=== PATIENT | male | born 1940 | race Asian ===

== ENCOUNTER 2022-09-20 20:38 | Emergency (ER) | payer MEDICARE, BC, SELFPAY ==
[2022-09-20] VITALS (9 sets, daily range): BP systolic 141–173; BP diastolic 62–77; PULSE 63–80; RESP 14–24; TEMP 36.6; O2SAT 94–100
--- NOTE | 2022-09-20 20:44 | ED_ITS ---
HPI - General Adult General Chief complaint: Trauma Stated complaint: Modified Trauma Time Seen by Provider: 09/20/22 20:44 Source: patient and EMS Mode of arrival: EMS Limitations: other (Confusion) History of Present Illness HPI narrative: Patient is a 81-year-old male who was brought in by EMS in a inflatable cervical collar and also on a inflatable backboard for evaluation of injuries that he sustained with an apparent fall. This was an unwitnessed fall. Was outside. The patient states he thinks that he tripped but he is not 100% sure. He does not remember having any prodromal symptoms. It was a bystander who contacted EMS. He is complaining of very severe upper back discomfort. Has bleeding from his nose not his face. Reports no belly hip or lower extremity discomfort. Related Data Allergies Allergy/AdvReac Type Severity Reaction Status Date / Time No Known Drug Allergies Allergy Verified 09/20/22 20:49 Review of Systems Review of Systems ROS Unobtainable: All systems reviewed & are unremarkable except as noted in HPI and below Patient History Social History Smoking Status: Current every day smoker Exam Initial Vital Signs Initial Vital Signs: Vital Signs Temperature 97.8 F 09/20/22 20:40 Pulse Rate 69 09/20/22 20:40 Respiratory Rate 14 09/20/22 20:40 Blood Pressure 171/77 H 09/20/22 20:40 Pulse Oximetry 99 09/20/22 20:40 Oxygen Delivery Method Room Air 09/20/22 20:40 Const General: No ill appearing HENMT Head: abrasion Face and sinus: abrasion, no crepitus, no fluctuance and no maxillary instability Mouth: oral mucosae normal and moist mucous membranes Teeth and gingiva: dentition normal Chest Chest: No crepitus and No tenderness Resp Effort & Inspection: normal respiratory effort Auscultation: clear to auscultation bilaterally Cardio Rate: regular rate Rhythm: regular rhythm GI Inspection: normal to inspection and non-distended Palpation: soft Back/Spine/Pelvis Cervical Spine: collar present Thoracic/Lumbar Spine: kyphosis, No paraspinal tenderness, thoracic spinal tenderness and No lumbar spinal tenderness Sacroiliac Joints: nontender Skin Other: Multiple abrasions over his face to include his for add in his cheeks and over the bridge of his nose. Also has an abrasion over his right shoulder and right elbow Neuro Other: Patient is alert to person at date but does not know where he is. Does not know what year it is. Extrem Other: Pelvis stable. No apparent discomfort with movement of bilateral knees and ankles. Bilateral wrists elbows and shoulders are unremarkable. Patient can move without any discomfort. Scores [facility] [place] coma scale eye opening: Spontaneous [place] coma scale verbal response: Confused [place] coma scale motor response: Obey commands [place] coma scale total score: 14 Course Orders Ordered: ED Orders 09/20/22 20:55 Complete Blood Count AUTO DIFF Stat Comprehensive Metabolic Panel Stat Ethanol (ETOH) Stat Lipase Stat PTT Partial Thromboplastin Ramez Stat Prothrombin Time INR Stat Discontinued Medications Hydrocodone Bitart/Acetaminophen (Hydrocodone/Acet 5/325 Tablet) 1 tab PO NOW ONE Stop: 09/20/22 22:34 Last Admin: 09/20/22 23:17 Dose: 1 tab Documented By: MARKIE Hydrocodone Bitart/Acetaminophen (Hydrocodone/Acet 5/325 Prepack) 1 bottle MISC SEEINSTR ONE Stop: 09/21/22 00:40 Last Admin: 09/21/22 01:08 Dose: 1 bottle Documented By: MARKIE Sodium Chloride (Normal Saline 0.9%) 1,000 mls @ 125 mls/hr IV CONT AMINTA Last Infusion: 09/21/22 00:13 Dose: 0 mls/hr Documented By: Admin: 09/20/22 21:42 Dose: 125 mls/hr Documented By: MARKIE Vital Signs Vital signs: Vital Signs - 8 hr 09/20/22 22:00 Pulse Rate 63 Respiratory Rate 20 Pulse Oximetry 100 Oxygen Delivery Method Room Air Medical Decision Making Lab Data Lab results reviewed: Yes I reviewed the patient's lab results. 09/20/22 20:55 09/20/22 20:55 Labs: Lab Results 09/20/22 09/20/22 09/20/22 Range/Units 20:55 20:55 20:55 WBC 28.5 H (4.5-11.0) X10^3/uL RBC 2.82 L (4.5-5.9) X10^6/uL Hgb 9.9 L (13.5-17.5) g/dL Hct 29.3 L (41-53) % MCV 103.7 H (80-100) fL MCH 35.1 H (26-34) PG MCHC 33.8 (30-36) % RDW 17.5 H (11.6-14.8) % Plt Count 431 H (150-400) X10^3/uL Neut % (Auto) 68.9 (50-75) % Lymph % (Auto) 10.7 L (25-40) % [place] % (Auto) 18.6 H (3-14) % Eos % (Auto) 0.8 L (2-4) % Baso % (Auto) 1.0 (0-2) % Neut # (Auto) 12435 H (8750-9048) /uL Lymph # (Auto) 3000 (2087-9061) /uL [place] # (Auto) 5300 H (0-900) /uL Eos # (Auto) 200 (0-450) /uL Baso # (Auto) 300 H (0-100) /uL PT 14.7 H (10.1-12.7) SECONDS INR 1.3 (0.9-1.3) APTT 33 (26-36) SECONDS Sodium 137 (137-145) mmol/L Potassium 4.1 (3.4-5.1) mmol/L Chloride 106 (98-107) mmol/L Carbon Dioxide 22 (22-32) mmol/L BUN 16 (9-20) mg/dL Creatinine 1.21 (0.66-1.25) mg/dL Estimated GFR > 60 (>60) mL/min BUN/Creatinine Ratio 13.2 (6-22) Glucose 106 (80-110) mg/dL Calcium 8.6 (8.4-10.2) mg/dL Total Bilirubin 0.4 (0.2-1.3) mg/dL AST 29 (17-59) IU/L ALT 29 (<50) IU/L Alkaline Phosphatase 67 (38-126) U/L Total Protein 6.2 L (6.3-8.2) g/dL Albumin 3.9 (3.5-5.0) g/dL Globulin 2.3 (1.7-4.1) g/dL Albumin/Globulin Ratio 1.7 (1.0-2.8) Lipase (23-300) U/L Ethyl Alcohol < 10 ( - 10) mg/dL 09/20/22 Range/Units 20:55 WBC (4.5-11.0) X10^3/uL RBC (4.5-5.9) X10^6/uL Hgb (13.5-17.5) g/dL Hct (41-53) % MCV (80-100) fL MCH (26-34) PG MCHC (30-36) % RDW (11.6-14.8) % Plt Count (150-400) X10^3/uL Neut % (Auto) (50-75) % Lymph % (Auto) (25-40) % [place] % (Auto) (3-14) % Eos % (Auto) (2-4) % Baso % (Auto) (0-2) % Neut # (Auto) (9012-8396) /uL Lymph # (Auto) (0668-7736) /uL [place] # (Auto) (0-900) /uL Eos # (Auto) (0-450) /uL Baso # (Auto) (0-100) /uL PT (10.1-12.7) SECONDS INR (0.9-1.3) APTT (26-36) SECONDS Sodium (137-145) mmol/L Potassium (3.4-5.1) mmol/L Chloride (98-107) mmol/L Carbon Dioxide (22-32) mmol/L BUN (9-20) mg/dL Creatinine (0.66-1.25) mg/dL Estimated GFR (>60) mL/min BUN/Creatinine Ratio (6-22) Glucose (80-110) mg/dL Calcium (8.4-10.2) mg/dL Total Bilirubin (0.2-1.3) mg/dL AST (17-59) IU/L ALT (<50) IU/L Alkaline Phosphatase (38-126) U/L Total Protein (6.3-8.2) g/dL Albumin (3.5-5.0) g/dL Globulin (1.7-4.1) g/dL Albumin/Globulin Ratio (1.0-2.8) Lipase 257 (23-300) U/L Ethyl Alcohol ( - 10) mg/dL Urine Dip Bedside Urine Glucose Negative Bedside Urine Bilirubin - Negative Bedside Urine Ketone - Negative Urine Specific [place] 1.010 Bedside Urine Occult Blood - Negative Bedside Urine pH 7.0 Bedside Urine Protein +/- 15 Bedside Urine Urobilinogen - Negative Bedside Urine Nitrite - Negative Bedside Urine Leukocytes - Negative Esterase Point of care testing: Urine Dip Bedside Urine Glucose Negative Bedside Urine Bilirubin - Negative Bedside Urine Ketone - Negative Urine Specific [place] 1.010 Bedside Urine Occult Blood - Negative Bedside Urine pH 7.0 Bedside Urine Protein +/- 15 Bedside Urine Urobilinogen - Negative Bedside Urine Nitrite - Negative Bedside Urine Leukocytes - Negative Esterase Imaging Data CT chest: Radiologist's Impression: PROCEDURE:? CT CHEST WO CON ? INDICATIONS:? fall with T spine pain ? TECHNIQUE: Noncontrast 5 mm thick sections acquired from the pulmonary apices to the posterior costophrenic angles.? 1 mm lung window, 5 mm thick coronal and sagittal and 7 mm axial MIP reformats were then acquired.? For radiation dose reduction, the following was used:? automated exposure control, adjustment of mA and/or kV according to patient size.? ? COMPARISON:? None. ? FINDINGS:? Image quality:? Excellent.? ? Lungs and pleura:? 2.0 by 1.6 cm subpleural nodule is seen at the medial right lung apex (74/3).? A 0.4 cm solid nodule at the posteromedial left upper lobe (89/3).? No acute air space opacities.? No pleural effusions or pneumothorax.? Mild bilateral bronchiectasis and bronchial wall thickening. ? Mediastinum:? Heart size is normal.? No pericardial effusion.? Moderate coronary artery calcifications.? No mediastinal adenopathy by size criteria.? Thoracic aorta and central pulmonary arteries are normal in size.? Esophagus is normal in caliber.? No hiatal hernia.? ? Bones and chest wall:? No suspicious bony lesions.? No vertebral body compressio n fractures.? Multilevel spondylosis.? No axillary or supraclavicular adenopathy by size criteria.? Subcentimeter calcified right thyroid nodule does not require dedicated imaging follow-up. ? Abdomen:? Spleen is markedly enlarged, measuring 16.9 cm and anterior-posterior dimension. ? IMPRESSION:? 1. No acute thoracic spine fracture. 2. Right apical 2.0 cm subpleural nodule.? Consider follow-up CT chest in 3 months versus PET-CT or percutaneous biopsy for further evaluation.? 3. Marked splenomegaly CT - cervical spine: Radiologist's Impression: PROCEDURE:? CT CERVICAL SPINE WO CON ? INDICATIONS:? fall with neck pain ? TECHNIQUE:? Noncontrast 3 mm thick sections acquired from the skull base to the T4 level.? Sagittal and coronal reformats were then constructed.? For radiation dose reduction, the following was used:? automated exposure control, adjustment of mA and/or kV according to patient size.? ? COMPARISON:? None. ? FINDINGS:? Image quality:? Excellent.? ? Bones:? No acute fractures or dislocations.? Visualized superior ribs are intact.? Multilevel disc space narrowing degenerative endplate changes.? Multilevel un covertebral joint and facet hypertrophy.? Moderate chronic narrowing of the bony spinal canal is seen at the C5-6 disc space level. ? Soft tissues:? Prevertebral soft tissues are normal in thickness.? No paravertebral hematomas.? No apical pneumothoraces.? A subpleural nodule is seen at the medial right lung apex.? A densely calcified subcentimeter right thyroid nodule requires no dedicated imaging follow-up. ? IMPRESSION:? 1. No acute cervical spine fracture or subluxation. 2. Multilevel spondylosis including chronic narrowing of the bony spinal canal.? MRI of the cervical spine could be performed for further evaluation if indicated clinically.? CT face: Radiologist's Impression: PROCEDURE:? CT FACIAL BONES WO CON ? INDICATIONS:? fall with face injuries ? TECHNIQUE:? Noncontrast 2.5 mm thick axial images acquired from the mandible through the frontal sinuses, with coronal and sagittal reformatting.? For radiation dose reduction, the following was used:? automated exposure control, adjustment of mA and/or kV according to patient size.? ? COMPARISON:? None. ? FINDINGS:? Image quality:? Excellent.? ? Bones and teeth:? Minimally displaced comminuted bilateral nasal bone fractures.? Minimally displaced fracture of the anterosuperior nasal septum (images 80-81 of series 2). Bilateral temporomandibular joint osteoarthrosis, right greater than left.? Orbital dickens are intact.? Sinus dickens show no fracture or deformity.? Visualized portions of the mandible demonstrate no fractures or subluxation.? Zygomatic arches are intact.? Pterygoid plates are intact.? Visualized portions of the skull base and auditory canals are intact.? ? Sinuses:? Paranasal sinuses are aerated, without fluid levels, mucosal thickening, or mucoceles.? Mastoid air cells are aerated.? ? Soft tissues:? Soft tissue edema is seen overlying the nose.? No enlarged lymph nodes.? No soft tissue lacerations or debris.? ? Vascular:? Visualized vascular structures appear normal in the absence of contrast.? Bony vascular foramina and canals are intact.? ? IMPRESSION:? 1. Minimally displaced comminuted bilateral nasal bone fractures. 2. Minimally displaced fracture of the anterosuperior nasal septum.? CT scan - head: Radiologist's Impression: PROCEDURE:? CT HEAD/BRAIN WO CON ? INDICATIONS:? fall and confusion ? TECHNIQUE:? Noncontrast 4.5 mm thick angled axial sections acquired from the foramen magnum to the vertex, with coronal and sagittal reformats.? For radiation dose reduction, the following was used:? automated exposure control, adjustment of mA and/or kV according to patient size.? ? COMPARISON:? None. ? FINDINGS:? Image quality:? Excellent.? ? CSF spaces:? Basal cisterns are patent.? No extra-axial fluid collections.? The ventricles are symmetric in size and shape.? ? Brain:? No acute intracranial hemorrhage or mass effect.? Moderately-sized area of chronic encephalomalacia is seen left frontoparietal region.? There is cerebral volume loss for age, with resultant ventricular and sulcal prominence.? There are periventricular and deep white matter chronic small vessel ischemic changes.? There is intracranial internal carotid artery atherosclerosis.? ? Skull and face:? Minimally displaced bilateral nasal bone fractures.? The calvarium is intact.? Facial edema and frontal scalp edema are noted. ? Sinuses:? Visualized sinuses and mastoids are clear.? ? IMPRESSION:? 1. No acute intracranial hemorrhage or mass effect. 2. Minimally displaced bilateral nasal bone fractures.? Frontal scalp edema.? No calvarial fracture. 3. Remote prior left frontoparietal infarct MDM Narrative Medical decision making narrative: Able to get a hold of the patient's daughter states that he is at his baseline mental status. CT scans do show a nasal bone fracture but no other associated fractures. Patient was given pain medication. Was able to stand and ambulate at bedside. Is also able to tolerate oral intake. Discussed the incidental pulmonary nodule. Family knows about this. We will hold on further workup for now. Family was given care instructions with regard to the abrasions. They were given return precautions. They expressed understanding and agreement. Discharge Plan Departure Patient Disposition: Home Clinical Impression: Incidental pulmonary nodule, Fracture of nasal bone, Abrasion of face Instructions: DI for Nose Fracture, DI for Abrasion Activity Restrictions/Additional Instructions: You can shower like normal. You can put some topical antibiotic ointment over the abrasions on your face. I would not be surprised if you develop some black his over the next day or so. You can eat like normal sleep like normal. Return to the emergency department for new or worsening symptoms. Referrals: Shannon Rubio MD [Primary Care Provider] - Stand Alone Forms: Patient Portal/API
--- NOTE | 2022-09-20 20:45 | DI.CT.S_ITS ---
PROCEDURE: CT CHEST WO CON INDICATIONS: fall with T spine pain TECHNIQUE: Noncontrast 5 mm thick sections acquired from the pulmonary apices to the posterior costophrenic angles. 1 mm lung window, 5 mm thick coronal and sagittal and 7 mm axial MIP reformats were then acquired. For radiation dose reduction, the following was used: automated exposure control, adjustment of mA and/or kV according to patient size. COMPARISON: None. FINDINGS: Image quality: Excellent. Lungs and pleura: 2.0 by 1.6 cm subpleural nodule is seen at the medial right lung apex (74/3). A 0.4 cm solid nodule at the posteromedial left upper lobe (89/3). No acute air space opacities. No pleural effusions or pneumothorax. Mild bilateral bronchiectasis and bronchial wall thickening. Mediastinum: Heart size is normal. No pericardial effusion. Moderate coronary artery calcifications. No mediastinal adenopathy by size criteria. Thoracic aorta and central pulmonary arteries are normal in size. Esophagus is normal in caliber. No hiatal hernia. Bones and chest wall: No suspicious bony lesions. No vertebral body compression fractures. Multilevel spondylosis. No axillary or supraclavicular adenopathy by size criteria. Subcentimeter calcified right thyroid nodule does not require dedicated imaging follow-up. Abdomen: Spleen is markedly enlarged, measuring 16.9 cm and anterior-posterior dimension. IMPRESSION: 1. No acute thoracic spine fracture. 2. Right apical 2.0 cm subpleural nodule. Consider follow-up CT chest in 3 months versus PET-CT or percutaneous biopsy for further evaluation. 3. Marked splenomegaly. Approved by: Andrés Cardona M.D. on 09/20/2022 at 21:54
--- NOTE | 2022-09-20 20:46 | DI.CT.S_ITS ---
PROCEDURE: CT HEAD/BRAIN WO CON INDICATIONS: fall and confusion TECHNIQUE: Noncontrast 4.5 mm thick angled axial sections acquired from the foramen magnum to the vertex, with coronal and sagittal reformats. For radiation dose reduction, the following was used: automated exposure control, adjustment of mA and/or kV according to patient size. COMPARISON: None. FINDINGS: Image quality: Excellent. CSF spaces: Basal cisterns are patent. No extra-axial fluid collections. The ventricles are symmetric in size and shape. Brain: No acute intracranial hemorrhage or mass effect. Moderately-sized area of chronic encephalomalacia is seen left frontoparietal region. There is cerebral volume loss for age, with resultant ventricular and sulcal prominence. There are periventricular and deep white matter chronic small vessel ischemic changes. There is intracranial internal carotid artery atherosclerosis. Skull and face: Minimally displaced bilateral nasal bone fractures. The calvarium is intact. Facial edema and frontal scalp edema are noted. Sinuses: Visualized sinuses and mastoids are clear. IMPRESSION: 1. No acute intracranial hemorrhage or mass effect. 2. Minimally displaced bilateral nasal bone fractures. Frontal scalp edema. No calvarial fracture. 3. Remote prior left frontoparietal infarct. Approved by: Andrés Cardona M.D. on 09/20/2022 at 21:40
--- NOTE | 2022-09-20 20:46 | DI.CT.S_ITS ---
PROCEDURE: CT FACIAL BONES WO CON INDICATIONS: fall with face injuries TECHNIQUE: Noncontrast 2.5 mm thick axial images acquired from the mandible through the frontal sinuses, with coronal and sagittal reformatting. For radiation dose reduction, the following was used: automated exposure control, adjustment of mA and/or kV according to patient size. COMPARISON: None. FINDINGS: Image quality: Excellent. Bones and teeth: Minimally displaced comminuted bilateral nasal bone fractures. Minimally displaced fracture of the anterosuperior nasal septum (images 80-81 of series 2). Bilateral temporomandibular joint osteoarthrosis, right greater than left. Orbital dickens are intact. Sinus dickens show no fracture or deformity. Visualized portions of the mandible demonstrate no fractures or subluxation. Zygomatic arches are intact. Pterygoid plates are intact. Visualized portions of the skull base and auditory canals are intact. Sinuses: Paranasal sinuses are aerated, without fluid levels, mucosal thickening, or mucoceles. Mastoid air cells are aerated. Soft tissues: Soft tissue edema is seen overlying the nose. No enlarged lymph nodes. No soft tissue lacerations or debris. Vascular: Visualized vascular structures appear normal in the absence of contrast. Bony vascular foramina and canals are intact. IMPRESSION: 1. Minimally displaced comminuted bilateral nasal bone fractures. 2. Minimally displaced fracture of the anterosuperior nasal septum. Approved by: Andrés Cardona M.D. on 09/20/2022 at 22:10
--- NOTE | 2022-09-20 20:46 | DI.CT.S_ITS ---
PROCEDURE: CT CERVICAL SPINE WO CON INDICATIONS: fall with neck pain TECHNIQUE: Noncontrast 3 mm thick sections acquired from the skull base to the T4 level. Sagittal and coronal reformats were then constructed. For radiation dose reduction, the following was used: automated exposure control, adjustment of mA and/or kV according to patient size. COMPARISON: None. FINDINGS: Image quality: Excellent. Bones: No acute fractures or dislocations. Visualized superior ribs are intact. Multilevel disc space narrowing degenerative endplate changes. Multilevel uncovertebral joint and facet hypertrophy. Moderate chronic narrowing of the bony spinal canal is seen at the C5-6 disc space level. Soft tissues: Prevertebral soft tissues are normal in thickness. No paravertebral hematomas. No apical pneumothoraces. A subpleural nodule is seen at the medial right lung apex. A densely calcified subcentimeter right thyroid nodule requires no dedicated imaging follow-up. IMPRESSION: 1. No acute cervical spine fracture or subluxation. 2. Multilevel spondylosis including chronic narrowing of the bony spinal canal. MRI of the cervical spine could be performed for further evaluation if indicated clinically. Approved by: Andrés Cardona M.D. on 09/20/2022 at 21:46
[2022-09-20 21:14] LABS: INR 1.3 (0.9-1.3); Prothrombin Time 14.7 SECONDS (10.1-12.7)
[2022-09-20 21:15] LABS: Add Manual Diff / Slide Review NO; Basophils Absolute Auto 300 /uL (0-100); Eosinophils Absolute Auto 200 /uL (0-450); Eosinophils Percent Auto 0.8 % (2-4); Hematocrit 29.3 % (41-53); Hemoglobin 9.9 g/dL (13.5-17.5); Lymphocytes Absolute Auto 3000 /uL (1100-4500); Lymphocytes Percent Auto 10.7 % (25-40); Mean Corpuscular HGB Conc 33.8 % (30-36); Mean Corpuscular Hemoglobin 35.1 PG (26-34); Mean Corpuscular Volume 103.7 fL (80-100); Monocytes Absolute Auto 5300 /uL (0-900); Monocytes Percent Auto 18.6 % (3-14); Neutrophils Absolute Auto 19600 /uL (1500-7000); Neutrophils Percent Auto 68.9 % (50-75); Platelet Count 431 X10^3/uL (150-400); Red Blood Cell Count 2.82 X10^6/uL (4.5-5.9); Red Cell Distribution Width 17.5 % (11.6-14.8); White Blood Cell Count 28.5 X10^3/uL (4.5-11.0)
[2022-09-20 21:17] LABS: PTT Partial Thromboplastin Tim 33 SECONDS (26-36)
[2022-09-20 21:21] LABS: Lipase 257 U/L (23-300)
[2022-09-20 21:23] LABS: Alanine Aminotransferase 29 IU/L (<50); Albumin 3.9 g/dL (3.5-5.0); Albumin Globulin Ratio 1.7 (1.0-2.8); Alkaline Phosphatase 67 U/L (38-126); Aspartate Aminotransferase 29 IU/L (17-59); BUN Creatinine Ratio 13.2 (6-22); Bilirubin Total 0.4 mg/dL (0.2-1.3); Blood Urea Nitrogen 16 mg/dL (9-20); Calcium 8.6 mg/dL (8.4-10.2); Carbon Dioxide 22 mmol/L (22-32); Chloride 106 mmol/L (98-107); Estimated Glomerular Filt Rate > 60 mL/min (>60); Ethanol (ETOH) < 10 mg/dL; Globulin 2.3 g/dL (1.7-4.1); Glucose 106 mg/dL (80-110); HEMOLYSIS 24 (0-50); Potassium 4.1 mmol/L (3.4-5.1); Sodium 137 mmol/L (137-145); Total Protein 6.2 g/dL (6.3-8.2)
[2022-09-20] MEDS: SODIUM CHLORIDE 0.9% 1,000 ML 125 ML IV (21:42)
[2022-09-20] MEDS: HYDROCODONE/ACET 5/325 TABLET 1 TAB PO (23:17)
[2022-09-21] MEDS: HYDROCODONE/ACET 5/325 PREPACK 1 BOTTLE MISC (01:08)
== END 2022-09-21 00:50 | disposition home or self-care (01) ==
PROVIDERS: Emergency Provider Emergency Medicine; PCP Internal Medicine
DX: S02.2XXA Fracture of nasal bones, initial encounter for closed fracture (principal); S00.81XA Abrasion of other part of head, initial encounter; M54.2 Cervicalgia; R07.9 Chest pain, unspecified; R41.0 Disorientation, unspecified; R91.1 Solitary pulmonary nodule; W19.XXXA Unspecified fall, initial encounter
CPT/HCPCS: 70450; 70486; 71250; 72125; 80053; 80320; 81003; 83690; 85025; 85610; 85730; 93005; 93010; 96360; 96361; 99284

== ENCOUNTER 2022-09-22 10:30 | Emergency (ER) | payer MEDICARE, BC, SELFPAY ==
[2022-09-22] VITALS (29 sets, daily range): BP systolic 112–162; BP diastolic 56–71; PULSE 45–83; RESP 11–27; TEMP 36.9; O2SAT 97–100; BMI 22.8
--- NOTE | 2022-09-22 11:13 | DI.RAD.S_ITS ---
PROCEDURE: XR SHOULDER RT MIN 2V INDICATIONS: pain TECHNIQUE: 3 views of the shoulder were acquired. COMPARISON: None. FINDINGS: Overlying EKG wires. Bones: No fractures or dislocations. No suspicious bony lesions. Visualized ribs appear intact. Moderate acromioclavicular and mild glenohumeral joint degenerative changes. Soft tissues: No suspicious soft tissue calcifications. IMPRESSION: No acute osseous abnormality. Moderate acromioclavicular and mild glenohumeral joint degenerative changes. Dictated by: Chad Brooks D.O. on 09/22/2022 at 10:45 Approved by: Chad Brooks D.O. on 09/22/2022 at 10:46
--- NOTE | 2022-09-22 11:38 | ED.FALL ---
HPI - Fall General Chief Complaint: Fall Stated Complaint: Fall, R shoulder pain Time Seen by Provider: 09/22/22 11:05 History of Present Illness HPI Narrative: Patient 81-year-old male history of recent fall on 09/20/2022. He was brought in by EMS seen evaluated here. Had multiple CTs and blood work. Who presented as a probable trip and fall but was not sure today he says that he passed out. He is significant contusion all over his face. CT facial bones was negative. Today really complaining of bilateral shoulder pain pain every time he moves. He lives alone. Pain is definitely not well controlled. Also blood work from visit showed leukocytosis of 28 without obvious sign of infection. Today he really seems to be complaining of pain in ribs and arms every time he moves. Related Data Allergies Allergy/AdvReac Type Severity Reaction Status Date / Time No Known Drug Allergies Allergy Verified 09/20/22 20:49 Review of Systems Review of Systems ROS Unobtainable: All systems reviewed & are unremarkable except as noted in HPI and below Patient History Social History Smoking Status: Current every day smoker Smoking Status: Current every day smoker alcohol intake frequency: 0-2 drinks per day Substance Use Type: does not use Exam Initial Vital Signs Initial Vital Signs: Vital Signs Temperature 98.4 F 09/22/22 10:37 Pulse Rate 55 L 09/22/22 10:37 Respiratory Rate 16 09/22/22 10:37 Blood Pressure 161/63 H 09/22/22 10:37 Pulse Oximetry 97 09/22/22 10:37 Oxygen Delivery Method Room Air 09/22/22 10:37 GENERAL: Alert 81-year-old male contusion over face thin HEENT: Head atraumatic,EOMI, pupils reactive, face symmetric, moist mucous membranes CARDIOVASCULAR: Regular rate and rhythm without murmurs, rubs or gallops. RESPIRATORY: Breath sounds equal bilaterally, no wheezes rales or rhonchi. ABDOMEN: Soft, nontender. Normoactive bowel sounds all 4 quadrants. No guarding or rebound mild spleen unlikely but no significant left upper quadrant pain. EXTREMITIES: Normal range of motion, no clubbing or edema. Neurovascularly intact No gross bony deformity in any limb however he has significant pain with any type of movement or palpation shoulders and arms pulses intact bilaterally no contusions or erythema. NEUROLOGICAL: Alert and oriented x4. SKIN: Abrasions noted all over face but no lacerations Course Orders Ordered: Discontinued Medications Hydromorphone HCl (Hydromorphone 0.5 Mg Inj) 0.5 mg IV NOW ONE Stop: 09/22/22 11:45 Last Admin: 09/22/22 11:51 Dose: 0.5 mg Documented By: TEZ Sodium Chloride (Normal Saline 0.9%) 1,000 mls @ 1,000 mls/hr IV BOLUS ONE Stop: 09/22/22 13:24 Last Infusion: 09/22/22 13:44 Dose: 0 mls/hr Documented By: Admin: 09/22/22 12:33 Dose: 1,000 mls/hr Documented By: TEZ Morphine Sulfate (Morphine 4 Mg/Ml Inj) 4 mg IV NOW ONE Stop: 09/22/22 13:39 Last Admin: 09/22/22 13:41 Dose: 4 mg Documented By: TEZ Morphine Sulfate (Morphine 4 Mg/Ml Inj) 4 mg IV NOW ONE Stop: 09/22/22 15:41 Last Admin: 09/22/22 15:46 Dose: 4 mg Documented By: TEZ Morphine Sulfate (Morphine 4 Mg/Ml Inj) 4 mg IV NOW ONE Stop: 09/22/22 18:07 Last Admin: 09/22/22 18:18 Dose: 4 mg Documented By: TEZ Morphine Sulfate (Morphine 4 Mg/Ml Inj) 4 mg IV Q3H PRN PRN Reason: Pain, Severe (7-10) Last Admin: 09/22/22 21:09 Dose: 4 mg Documented By: TEZ Vital Signs Vital signs: Vital Signs - 8 hr 09/22/22 11:53 09/22/22 12:00 09/22/22 12:01 Pulse Rate 53 L 49 L Respiratory Rate 22 12 Blood Pressure 140/61 Pulse Oximetry 100 100 09/22/22 12:01 09/22/22 12:30 09/22/22 12:31 Pulse Rate 48 L 48 L Respiratory Rate 12 19 Blood Pressure 129/58 L Pulse Oximetry 100 100 09/22/22 12:31 09/22/22 13:00 09/22/22 13:01 Pulse Rate 47 L 51 L Respiratory Rate 11 L 15 Blood Pressure 162/71 H Pulse Oximetry 100 100 09/22/22 13:01 09/22/22 13:30 09/22/22 13:31 Pulse Rate 51 L 50 L Respiratory Rate 14 17 Blood Pressure 139/63 Pulse Oximetry 100 100 09/22/22 13:31 09/22/22 14:00 09/22/22 14:00 Pulse Rate 49 L 51 L Respiratory Rate 20 23 Blood Pressure 121/58 L Pulse Oximetry 100 100 09/22/22 14:30 09/22/22 15:00 09/22/22 15:30 Pulse Rate 50 L 83 64 Respiratory Rate 20 22 26 H Blood Pressure Pulse Oximetry 99 100 100 09/22/22 15:34 09/22/22 15:34 09/22/22 15:49 Pulse Rate 60 51 L Respiratory Rate 27 H 14 Blood Pressure 147/65 H Pulse Oximetry 100 100 09/22/22 15:49 09/22/22 16:00 09/22/22 16:00 Pulse Rate 50 L Respiratory Rate 11 L Blood Pressure 143/63 H 118/57 L Pulse Oximetry 97 09/22/22 16:30 09/22/22 16:30 09/22/22 17:00 Pulse Rate 49 L 49 L Respiratory Rate 12 12 Blood Pressure 115/57 L Pulse Oximetry 98 99 09/22/22 17:01 09/22/22 17:01 09/22/22 17:30 Pulse Rate 46 L 47 L Respiratory Rate 11 L 13 Blood Pressure 132/58 L Pulse Oximetry 100 98 09/22/22 17:31 09/22/22 17:31 09/22/22 17:56 Pulse Rate 47 L Respiratory Rate 11 L Blood Pressure 115/56 L 128/62 Pulse Oximetry 100 09/22/22 17:56 09/22/22 18:00 09/22/22 18:00 Pulse Rate 50 L 47 L Respiratory Rate 20 13 Blood Pressure 112/56 L Pulse Oximetry MDM - Fall Lab Data 09/22/22 11:49 09/22/22 11:49 Labs: Lab Results 09/22/22 09/22/22 09/22/22 Range/Units 11:49 11:49 11:49 WBC 21.4 H (4.5-11.0) X10^3/uL RBC 2.72 L (4.5-5.9) X10^6/uL Hgb 9.7 L (13.5-17.5) g/dL Hct 28.2 L (41-53) % MCV 103.6 H (80-100) fL MCH 35.5 H (26-34) PG MCHC 34.3 (30-36) % RDW 17.4 H (11.6-14.8) % Plt Count 398 (150-400) X10^3/uL Neut % (Auto) Not Reportable Lymph % (Auto) Not Reportable [place] % (Auto) Not Reportable Eos % (Auto) Not Reportable Baso % (Auto) Not Reportable Lymph # (Auto) Not Reportable [place] # (Auto) Not Reportable Baso # (Auto) Not Reportable Total Counted 100 Seg Neutrophils % 72.0 H (38-70) % Lymphocytes % (Manual) 9.0 L (25-45) % Monocytes % (Manual) 14.0 H (2-11) % Eosinophils % (Manual) 3.0 (2-4) % Basophils % (Manual) 1.0 (0-1) % Metamyelocytes % 1.0 H (-0) % Neutrophils # (Manual) 19117 H (3370-5660) /uL RBC Morphology See below Anisocytosis 1+ H Macrocytosis 1+ H Sodium 137 (137-145) mmol/L Potassium 4.0 (3.4-5.1) mmol/L Chloride 108 H (98-107) mmol/L Carbon Dioxide 24 (22-32) mmol/L BUN 17 (9-20) mg/dL Creatinine 1.29 H (0.66-1.25) mg/dL Estimated GFR 56 L (>60) mL/min BUN/Creatinine Ratio 13.2 (6-22) Glucose 98 (80-110) mg/dL Lactate 1.4 (0.7-2.1) mmol/L Calcium 8.4 (8.4-10.2) mg/dL Total Bilirubin 0.4 (0.2-1.3) mg/dL AST 20 (17-59) IU/L ALT 22 (<50) IU/L Alkaline Phosphatase 52 (38-126) U/L Total Creatine Kinase (55-170) U/L CK-MB (CK-2) CK-MB (CK-2) Rel Index Troponin I (0.01-0.034) ng/mL Total Protein 5.7 L (6.3-8.2) g/dL Albumin 3.5 (3.5-5.0) g/dL Globulin 2.2 (1.7-4.1) g/dL Albumin/Globulin Ratio 1.6 (1.0-2.8) Procalcitonin 0.12 (<0.5) ng/mL Urine Color Urine Appearance Urine pH (4.5-8.0) Ur Specific [place] (1.000-1.035) Urine Protein (Negative) Urine Glucose (UA) (Negative) g/dL Urine Ketones (NEGATIVE) Urine Occult Blood (Negative) Urine Nitrate (Negative) Urine Bilirubin (NEGATIVE) Urine Urobilinogen (0.2) E.U./dL Ur Leukocyte Esterase (NEGATIVE) Urine RBC (0-5/HPF) Urine WBC (0-5/HPF) Ur Squamous Epith Cells (0-5/HPF) Urine Bacteria (None) Ur Culture Indicated? Chlamy pneumoniae PCR (Not Detect) Adenovirus (PCR) (Not Detect) B. pertussis DNA (PCR) (Not Detecte) B.parapertussis DNA PCR (Not Detecte) Coronavirus OC43 (PCR) (Not Detect) Coronavirus HKU1 (PCR) (Not Detect) Coronavirus 229E (PCR) (Not Detect) SARS-CoV-2 (PCR) (Not Detecte) Coronavirus NL63 (PCR) (Not Detect) Human Metapneumovir PCR (Not Detect) Influenza Type A (PCR) (Not Detect) Influenza Type B (PCR) (Not Detect) M. pneumoniae (PCR) (Not Detect) Parainfluenza 1 (PCR) (Not Detect) Parainfluenza 2 (PCR) (Not Detect) Parainfluenza 3 (PCR) (Not Detect) Parainfluenza 4 (PCR) (Not Detect) RSV (PCR) (Not Detect) Entero/Rhino (PCR) (Not Detect) 09/22/22 09/22/22 09/22/22 Range/Units 11:49 12:04 14:17 WBC (4.5-11.0) X10^3/uL RBC (4.5-5.9) X10^6/uL Hgb (13.5-17.5) g/dL Hct (41-53) % MCV (80-100) fL MCH (26-34) PG MCHC (30-36) % RDW (11.6-14.8) % Plt Count (150-400) X10^3/uL Neut % (Auto) Lymph % (Auto) [place] % (Auto) Eos % (Auto) Baso % (Auto) Lymph # (Auto) [place] # (Auto) Baso # (Auto) Total Counted Seg Neutrophils % (38-70) % Lymphocytes % (Manual) (25-45) % Monocytes % (Manual) (2-11) % Eosinophils % (Manual) (2-4) % Basophils % (Manual) (0-1) % Metamyelocytes % (-0) % Neutrophils # (Manual) (0994-1820) /uL RBC Morphology Anisocytosis Macrocytosis Sodium (137-145) mmol/L Potassium (3.4-5.1) mmol/L Chloride (98-107) mmol/L Carbon Dioxide (22-32) mmol/L BUN (9-20) mg/dL Creatinine (0.66-1.25) mg/dL Estimated GFR (>60) mL/min BUN/Creatinine Ratio (6-22) Glucose (80-110) mg/dL Lactate (0.7-2.1) mmol/L Calcium (8.4-10.2) mg/dL Total Bilirubin (0.2-1.3) mg/dL AST (17-59) IU/L ALT (<50) IU/L Alkaline Phosphatase (38-126) U/L Total Creatine Kinase 27 L (55-170) U/L CK-MB (CK-2) TNP CK-MB (CK-2) Rel Index TNP Troponin I 0.028 (0.01-0.034) ng/mL Total Protein (6.3-8.2) g/dL Albumin (3.5-5.0) g/dL Globulin (1.7-4.1) g/dL Albumin/Globulin Ratio (1.0-2.8) Procalcitonin (<0.5) ng/mL Urine Color Yellow Urine Appearance Clear Urine pH 6.0 (4.5-8.0) Ur Specific [place] 1.025 (1.000-1.035) Urine Protein Trace H (Negative) Urine Glucose (UA) Negative (Negative) g/dL Urine Ketones Negative (NEGATIVE) Urine Occult Blood Negative (Negative) Urine Nitrate Negative (Negative) Urine Bilirubin Negative (NEGATIVE) Urine Urobilinogen 0.2 (0.2) E.U./dL Ur Leukocyte Esterase Negative (NEGATIVE) Urine RBC None seen (0-5/HPF) Urine WBC 0-1/hpf (0-5/HPF) Ur Squamous Epith Cells None seen (0-5/HPF) Urine Bacteria None seen (None) Ur Culture Indicated? Cult not indicated Chlamy pneumoniae PCR Not detected (Not Detect) Adenovirus (PCR) Not detected (Not Detect) B. pertussis DNA (PCR) Not detected (Not Detecte) B.parapertussis DNA PCR Not detected (Not Detecte) Coronavirus OC43 (PCR) Not detected (Not Detect) Coronavirus HKU1 (PCR) Not detected (Not Detect) Coronavirus 229E (PCR) Not detected (Not Detect) SARS-CoV-2 (PCR) Not detected (Not Detecte) Coronavirus NL63 (PCR) Not detected (Not Detect) Human Metapneumovir PCR Not detected (Not Detect) Influenza Type A (PCR) Not detected (Not Detect) Influenza Type B (PCR) Not detected (Not Detect) M. pneumoniae (PCR) Not detected (Not Detect) Parainfluenza 1 (PCR) Not detected (Not Detect) Parainfluenza 2 (PCR) Not detected (Not Detect) Parainfluenza 3 (PCR) Not detected (Not Detect) Parainfluenza 4 (PCR) Not detected (Not Detect) RSV (PCR) Not detected (Not Detect) Entero/Rhino (PCR) Not detected (Not Detect) Imaging Data CT scan - abdomen/pelvis: Radiologist's Impression: PROCEDURE:? CT CHEST ABD PEL W CON ? INDICATIONS:? fall 2 days ago leukocytosis pain all over ? TECHNIQUE:? After the administration of intravenous contrast, 5 mm thick sections acquired from the lung apices to the symphysis.? 5 mm coronal and sagittal reformats were performed, with additional 7 mm MIP reformats through the lungs.? For radiation dose reduction, the following was used:? automated exposure control, adjustment of mA and/or kV according to patient size.? ? COMPARISON:? CT chest dated 09/20/2022 ? FINDINGS:? Image quality:? Excellent.? ? CHEST:? Lungs and pleura:? No acute airspace opacities.? No pleural effusions or pneumothorax.? Central and peripheral airways appear patent and normal in caliber.? Within the superior aspect of the right upper lobe medially is a spiculated appearing 1.7 x 1.5 cm lung nodule. ? Mediastinum:? Heart size is normal.? Moderate multi-vessel coronary vascular calcifications.? No pericardial effusion.? No mediastinal or hilar adenopathy by size criteria.? Thoracic aorta and central pulmonary arteries are normal in size.? Esophagus is normal in caliber.? No hiatal hernia.? ? Chest wall:? No axillary or supraclavicular adenopathy by size criteria.? Thyroid gland is unremarkable.? ? ? ABDOMEN:? Solid organs:? Within the left lobe of the liver is a hypodense lesion measuring 1.9 x 1.4 cm measuring greater than simple flea fluid.? Additional subcentimeter lesions of the liver too small to further characterize.? Gallbladder demonstrates hyperdense material versus gallstones within the gallbladder.? No wall thickening or surrounding inflammation.? Biliary system is non dilated.? Pancreas enhances normally.? No adrenal nodules.? Kidneys are normal in size.? Along the posterior aspect of the superior pole of the right kidney there is an irregular exophytic lesion with questionable internal fat measuring 1.8 x 1.4 sin meters on axial imaging and 3.3 cm in craniocaudad dimension. ? The spleen is significantly enlarged measuring over 17 cm in length.? There are multiple peripheral hypodensities most of which appear web shaved.? There is however edema noted along the inferior aspect of the spleen addition adjacent to the lucency.? The largest lucency measures approximately 4.3 cm in length. ? Peritoneum and bowel:? Bowel loops demonstrate normal wall thickness and caliber.? No free fluid or air.? Moderate stool burden. ? Nodes and vessels:? No retroperitoneal or mesenteric adenopathy by size criteria.? Aorta and inferior vena cava are normal in size.? ? Miscellaneous:? No ventral hernias.? ? ? PELVIS:? Genitourinary:? Bladder wall thickness is normal.? Prostatomegaly. ? Miscellaneous:? Fat containing right inguinal hernia. ? Bones:? No suspicious bony lesions.? Remote right-sided rib fractures.? No acute displaced rib fracture.? No vertebral body compression fractures.? Grade 1 anterolisthesis of L4 on L5.? Degenerative changes throughout the spine, hips, and shoulders. ? IMPRESSION:? ? Splenomegaly.? Multiple peripheral hypodensities which may represent splenic infarctions. ?The largest however measures 4.3 cm in length with adjacent edema and given history of trauma laceration not excluded.? This would represent an AAST grade III injury. ? Spiculated right upper lobe nodule measuring 1.6 cm concerning for malignancy.? Consider PET-CT versus tissue sampling.? ? Left hepatic lobe lesion measuring up to 1.9 cm non-specific.? This could be further evaluated with dedicated liver MRI as clinically warranted. ? Exophytic right renal lesion which demonstrates heterogeneous appearance and likely macroscopic fat may represent an AML measuring 1.9 cm.? This could also be further evaluated with MRI.? ? Cholelithiasis. ? ? ? Moderate multi-vessel coronary vascular calcifications.? ? Findings discussed with the ordering provider Dr. Jackelyn Hayden at approximately 2:30 p.m. [place] Standard Time on 09/22/2022 over the telephone. ? Dictated by: Chad Brooks D.O. on 09/22/2022 at 14:16 ? ECG Data Interpretation: Sinus bradycardia rate 48 LA interval 156 QRS 70 QTC 432 MDM Narrative Medical decision making narrative: Patient 81-year-old male presents after a fall 2 days ago. Possible syncopal episode. And complaining of pain all over. He had CT and blood work at that time CT scan did show a minimally displaced nasal bone fracture but no other injury. He has no obvious bony deformity but having pain in all extremities kind of the right shoulder x-ray today is negative. LABS: He has persistent leukocytosis today of 21 with a left shift no obvious source. Blood cultures are pending. Previous leukocytosis of 28. Respiratory panel is negative urinalysis negative not having infectious symptoms. Hemoglobin remains stable previously 9.9 today 9.7 with hematocrit previously 29.3 and hematocrit 28.2 platelets are 390 today. IMAGING: CT chest abdomen pelvis with contrast shows splenomegaly with probable splenic infarcts and the laceration 4.3 cm without active bleeding. He also was found have a pulmonary nodule of 1.6 cm. Patient is requiring multiple doses of IV pain medication which seemed to help for a short time. He is mildly bradycardic without hypotension. There is concern for underlying malignancy of some sort with leukocytosis and splenomegaly. I have spoken to daughter she reports he is had a longstanding pulmonary nodule. Dr. Eaton on-call surgery updated patient's symptoms and test results reports that if this is a splenic laceration there is risk of bleeding and recommends transferring to facility with Interventional Radiology. Dr. Martins, ED doctor at [facility] updated on patient's symptoms test results and kindly accepts Patient remains hemodynamically stable he is 48 hours after a fall with a questionable splenic laceration and underlying malignancy. No evidence or source of infection at this time. No antibiotics were given. Discharge Plan Departure Patient Disposition: [facility] Clinical Impression: Moderate laceration of spleen, Incidental pulmonary nodule, Leukocytosis Referrals: Shannon Rubio MD [Primary Care Provider] -
[2022-09-22] MEDS: HYDROMORPHONE 0.5 MG INJ IV (11:51)
[2022-09-22 11:57] LABS: Hematocrit 28.2 % (41-53); Hemoglobin 9.7 g/dL (13.5-17.5); Mean Corpuscular HGB Conc 34.3 % (30-36); Mean Corpuscular Hemoglobin 35.5 PG (26-34); Mean Corpuscular Volume 103.6 fL (80-100); Platelet Count 398 X10^3/uL (150-400); Red Blood Cell Count 2.72 X10^6/uL (4.5-5.9); Red Cell Distribution Width 17.4 % (11.6-14.8); White Blood Cell Count 21.4 X10^3/uL (4.5-11.0)
--- NOTE | 2022-09-22 11:58 | PC.NURSE ---
patient states that he fell and hit his head but does not remember why he fell but he thinks he passed out. He denies chest pain, but does state that he feels dizzy when he stands up.
[2022-09-22 11:59] LABS: Add Manual Diff / Slide Review YES
[2022-09-22 12:07] LABS: Alanine Aminotransferase 22 IU/L (<50); Albumin 3.5 g/dL (3.5-5.0); Albumin Globulin Ratio 1.6 (1.0-2.8); Alkaline Phosphatase 52 U/L (38-126); Aspartate Aminotransferase 20 IU/L (17-59); BUN Creatinine Ratio 13.2 (6-22); Bilirubin Total 0.4 mg/dL (0.2-1.3); Blood Urea Nitrogen 17 mg/dL (9-20); Calcium 8.4 mg/dL (8.4-10.2); Carbon Dioxide 24 mmol/L (22-32); Chloride 108 mmol/L (98-107); Estimated Glomerular Filt Rate 56 mL/min (>60); Globulin 2.2 g/dL (1.7-4.1); Glucose 98 mg/dL (80-110); HEMOLYSIS < 15 (0-50); Sodium 137 mmol/L (137-145); Total Protein 5.7 g/dL (6.3-8.2)
[2022-09-22 12:08] LABS: Lactate (Lactic Acid) 1.4 mmol/L (0.7-2.1)
[2022-09-22 12:10] LABS: Anisocytosis 1+; Macrocytosis 1+; Neutrophils Absolute Manual 15408 /uL (3000-5900); Total Cells Counted 100
[2022-09-22 12:14] LABS: Appearance Urine UA CLEAR; Bilirubin Urine UA NEGATIVE (NEGATIVE); Color Urine UA YELLOW; Glucose Urine UA NEGATIVE (Negative); Ketones Urine UA NEGATIVE (NEGATIVE); Leukocyte Esterase Urine UA NEGATIVE (NEGATIVE); Nitrite Urine UA NEGATIVE (Negative); Occult Blood Urine UA NEGATIVE (Negative); Protein Urine UA TRACE (Negative); Specific Gravity Urine UA 1.025 (1.000-1.035); Urobilinogen Urine UA 0.2 E.U./dL (0.2)
[2022-09-22 12:23] LABS: Bacteria Urine None Seen; Culture Indicated Urine Cult Not Indicated; RBC Urine None Seen (0-5/HPF); Squamous Epithelial Cell Urine None Seen (0-5/HPF); WBC Urine 0-1/HPF (0-5/HPF)
[2022-09-22 12:24] LABS: Procalcitonin 0.12 ng/mL (<0.5)
[2022-09-22] MEDS: SODIUM CHLORIDE 0.9% 1,000 ML 1000 ML IV (12:33)
[2022-09-22 12:43] LABS: Creatine Kinase 27 U/L (55-170)
[2022-09-22 12:55] LABS: Troponin I 0.028 ng/mL (0.01-0.034)
[2022-09-22] MEDS: MORPHINE 4 MG/ML INJ IV ×4 (13:41→21:09)
--- NOTE | 2022-09-22 13:48 | PC.NURSE ---
pt spilled some urine from urinal on groin area. this [employer] HELPER cleaned pt. pt instructed to use call light if assistance is needed when using urinal.
--- NOTE | 2022-09-22 13:51 | DI.CT.S_ITS ---
PROCEDURE: CT CHEST ABD PEL W CON INDICATIONS: fall 2 days ago leukocytosis pain all over TECHNIQUE: After the administration of intravenous contrast, 5 mm thick sections acquired from the lung apices to the symphysis. 5 mm coronal and sagittal reformats were performed, with additional 7 mm MIP reformats through the lungs. For radiation dose reduction, the following was used: automated exposure control, adjustment of mA and/or kV according to patient size. COMPARISON: CT chest dated 09/20/2022 FINDINGS: Image quality: Excellent. CHEST: Lungs and pleura: No acute airspace opacities. No pleural effusions or pneumothorax. Central and peripheral airways appear patent and normal in caliber. Within the superior aspect of the right upper lobe medially is a spiculated appearing 1.7 x 1.5 cm lung nodule. Mediastinum: Heart size is normal. Moderate multi-vessel coronary vascular calcifications. No pericardial effusion. No mediastinal or hilar adenopathy by size criteria. Thoracic aorta and central pulmonary arteries are normal in size. Esophagus is normal in caliber. No hiatal hernia. Chest wall: No axillary or supraclavicular adenopathy by size criteria. Thyroid gland is unremarkable. ABDOMEN: Solid organs: Within the left lobe of the liver is a hypodense lesion measuring 1.9 x 1.4 cm measuring greater than simple flea fluid. Additional subcentimeter lesions of the liver too small to further characterize. Gallbladder demonstrates hyperdense material versus gallstones within the gallbladder. No wall thickening or surrounding inflammation. Biliary system is non dilated. Pancreas enhances normally. No adrenal nodules. Kidneys are normal in size. Along the posterior aspect of the superior pole of the right kidney there is an irregular exophytic lesion with questionable internal fat measuring 1.8 x 1.4 sin meters on axial imaging and 3.3 cm in craniocaudad dimension. The spleen is significantly enlarged measuring over 17 cm in length. There are multiple peripheral hypodensities most of which appear web shaved. There is however edema noted along the inferior aspect of the spleen addition adjacent to the lucency. The largest lucency measures approximately 4.3 cm in length. Peritoneum and bowel: Bowel loops demonstrate normal wall thickness and caliber. No free fluid or air. Moderate stool burden. Nodes and vessels: No retroperitoneal or mesenteric adenopathy by size criteria. Aorta and inferior vena cava are normal in size. Miscellaneous: No ventral hernias. PELVIS: Genitourinary: Bladder wall thickness is normal. Prostatomegaly. Miscellaneous: Fat containing right inguinal hernia. Bones: No suspicious bony lesions. Remote right-sided rib fractures. No acute displaced rib fracture. No vertebral body compression fractures. Grade 1 anterolisthesis of L4 on L5. Degenerative changes throughout the spine, hips, and shoulders. IMPRESSION: Splenomegaly. Multiple peripheral hypodensities which may represent splenic infarctions. The largest however measures 4.3 cm in length with adjacent edema and given history of trauma laceration not excluded. This would represent an AAST grade III injury. Spiculated right upper lobe nodule measuring 1.6 cm concerning for malignancy. Consider PET-CT versus tissue sampling. Left hepatic lobe lesion measuring up to 1.9 cm non-specific. This could be further evaluated with dedicated liver MRI as clinically warranted. Exophytic right renal lesion which demonstrates heterogeneous appearance and likely macroscopic fat may represent an AML measuring 1.9 cm. This could also be further evaluated with MRI. Cholelithiasis. Moderate multi-vessel coronary vascular calcifications. Findings discussed with the ordering provider Dr. Jackelyn Hayden at approximately 2:30 p.m. [place] Standard Time on 09/22/2022 over the telephone. Dictated by: Chad Brooks D.O. on 09/22/2022 at 14:16 Approved by: Chad Brooks D.O. on 09/22/2022 at 14:37
[2022-09-22 15:14] LABS: Adenovirus Not Detected (Not Detect); B. parapertussis Not Detected (Not Detecte); Bordetella pertussis Not Detected (Not Detecte); Chlamydophila pneumoniae Not Detected (Not Detect); Coronavirus 229E Not Detected (Not Detect); Coronavirus HKU1 Not Detected (Not Detect); Coronavirus NL 63 Not Detected (Not Detect); Coronavirus OC43 Not Detected (Not Detect); Human Metapneumovirus Not Detected (Not Detect); Human Rhinovirus/Enterovirus Not Detected (Not Detect); Influenza A Not Detected (Not Detect); Influenza B Not Detected (Not Detect); Mycoplasma pneumoniae Not Detected (Not Detect); Parainfluenza Virus 1 Not Detected (Not Detect); Parainfluenza Virus 2 Not Detected (Not Detect); Parainfluenza Virus 3 Not Detected (Not Detect); Parainfluenza Virus 4 Not Detected (Not Detect); Respiratory Syncytial Virus Not Detected (Not Detect); SARS- CoV-2 Not Detected (Not Detecte)
--- NOTE | 2022-09-22 17:43 | PC.NURSE ---
patient fell asleep for a little while
== END 2022-09-22 21:35 | disposition short-term general hospital (02) ==
PROVIDERS: Emergency Provider Emergency Medicine; PCP Internal Medicine
DX: S36.031A Moderate laceration of spleen, initial encounter (principal); D72.829 Elevated white blood cell count, unspecified; R91.1 Solitary pulmonary nodule; R07.81 Pleurodynia; Z20.822 Contact with and (suspected) exposure to COVID-19; W19.XXXA Unspecified fall, initial encounter
CPT/HCPCS: 36415; 71260; 73030; 74177; 80053; 81001; 82550; 83605; 84145; 84484; 85007; 85025; 87040; 87633; 93005; 93010; 96361; 96374; 96375; 96376; 99284; J1170; J2270; Q9967